=== PATIENT | female | born 1995 | race Two or more races ===

== ENCOUNTER 2018-04-24 23:43 | Emergency (ER) | payer MEDICAID ==
[~2018-04-24] VITALS: Ht 167.6 cm; Wt 96.2 kg
[2018-04-24 23:58] VITALS: BP 125/66
[2018-04-25] MEDS ORDERED: Acetaminophen 500mg (ES) tab PO ONE
[2018-04-25] MEDS ORDERED: ROBAXIN-750750 MG PO (01:08)
[2018-04-25] MEDS ORDERED: TYLENOL EXTRA500 MG ORAL (01:08)
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
[2018-04-25 01:22] VITALS: BP 122/67
--- NOTE | 2018-04-25 10:30 | Diagnostic Imaging Report ---
Indication: Knee Pain 3 views of the left knee were obtained. Findings: No acute fracture, malalignment, or joint effusion are identified. Joint space is relatively well-maintained. Impression: Negative for acute injury
== END 2018-04-25 01:26 | disposition home or self-care (01) ==
LOC: EDBD 23:43 → EMR 23:59
DX: S80.02XA Contusion of left knee, initial encounter (principal); V43.52XA Car driver injured in collision with other type car in traffic accident, initial encounter; Y92.414 Local residential or business street as the place of occurrence of the external cause; E03.9 Hypothyroidism, unspecified
CPT/HCPCS: 99283

== ENCOUNTER 2018-07-21 18:36 | Emergency (ER) | payer MEDICAID ==
[~2018-07-21] VITALS: Ht 167.6 cm; Wt 113.4 kg
[~2018-07-21 18:36] MED LIST: ROBAXIN-750750 MG PO; TYLENOL EXTRA500 MG ORAL
[2018-07-21 18:42] VITALS: BP 144/72
--- NOTE | 2018-07-21 18:43 | NUR ---
ED Nurse Note: A/Ox4. 6-7 weeks of pregant woman ambulated in to ER due to lower abdominal pain 01/24 with burning urination for 2 days. Pt states she has hx of miscarriage. Denies swelling nor discharge.
--- NOTE | 2018-07-21 19:12 | NUR ---
HAND-OFF: Report given to SHIREEN Burton. No s/s of distress.
[2018-07-21 19:14] LABS: APPEARANCE,URINE CLEAR; BILIRUBIN, URINE NEGATIVE (NEGATIVE); COLOR,URINE PALE YELLOW; GLUCOSE, URINE (UA) NEGATIVE (NEGATIVE); KETONES,URINE NEGATIVE (NEGATIVE); LEUKOCYTE ESTERASE ,URINE 2+ (NEGATIVE); NITRITE,URINE NEGATIVE (NEGATIVE); PH,URINE 7 (4.5-8.0); PROTEIN,URINE NEGATIVE (NEGATIVE); UROBILINOGEN,URINE NORMAL MG/DL (0.0-1.0)
--- NOTE | 2018-07-21 19:30 | NUR ---
ED Nurse Note: Patient resting comfortably post blood draw. No signs or symptoms of acute distress. Patient A&Ox4, asnd expresses no pain or discomfort at this time.
--- NOTE | 2018-07-21 19:42 | Emergency Room Report ---
History of Present Illness General Chief Complaint: Abdominal Pain Source: Patient Present Illness HPI 23-year-old female presents to the emergency department complaining of 7 out of 10 in severity sharp lower abdominal pains times one day. Patient also reports having dysuria 2 days. Pt. describes sharp cramping pain that is deep inside and also radiates to the low back, she denies tenderness. Patient states that she is currently estimated 4-6 weeks . Patient states that she had this calculated by her [employer] STICKER and she has her first ultrasound appointment scheduled for next week. Denies nausea, vomiting, fevers, chills, hematuria, vaginal discharge, vaginal bleeding. Patient is . Allergies: Coded Allergies: No Known Allergies (Unverified , 04/24/18) Patient History Past Medical History: see triage record Past Surgical History: none Pertinent Family History: none Now: Yes - 6th-7th week of preganncy : 2 Reviewed Nursing Documentation: PMH: Agreed; PSxH: Agreed Nursing Documentation-PMH Hx Cardiac Problems: No - hypothyroid Review of Systems All Other Systems: negative except mentioned in HPI Physical Exam Vital Signs Date Time Temp Pulse Resp B/P (MAP) Pulse Ox O2 Delivery O2 Flow Rate FiO2 07/21/18 18:39 98.6 86 22 144/72 99 Room Air Sp02 EP Interpretation: reviewed, normal General Appearance: no apparent distress, alert, GCS 15, non-toxic Head: normocephalic, atraumatic Eyes: bilateral eye normal inspection, bilateral eye PERRL ENT: hearing grossly normal, normal voice Neck: full range of motion Respiratory: lungs clear, normal breath sounds, speaking full sentences Cardiovascular #1: regular rate, rhythm Gastrointestinal: normal bowel sounds, non tender, soft Rectal: deferred Genitourinary: normal inspection Musculoskeletal: back normal, gait/station normal, normal range of motion, non- tender Neurologic: alert, oriented x3, responsive, motor strength/tone normal, sensory intact, speech normal, grossly normal Psychiatric: judgement/insight normal Skin: normal color, no rash, warm/dry, well hydrated Lymphatic: no adenopathy Medical Decision Making PA Attestation Dr. redd is my supervising Physician whom patient management has been discussed with. Diagnostic Impression: Primary Impression: Abdominal pain during in first trimester Additional Impression: Threatened miscarriage in early ER Course 23-year-old female presents to the emergency department complaining of 7 out of 10 in severity sharp lower abdominal pains times one day. Patient also reports having dysuria 2 days. Pt. describes sharp cramping pain that is deep inside and also radiates to the low back, she denies tenderness. Patient states that she is currently estimated 4-6 weeks . Patient states that she had this calculated by her [employer] STICKER and she has her first ultrasound appointment scheduled for next week. Denies nausea, vomiting, fevers, chills, hematuria, vaginal discharge, vaginal bleeding. Patient is . Ddx considered but are not limited to: Fibroid, ectopic , Fibroid, Spontaneous , UTI Vital signs: are WNL, pt. is afebrile H&PE are most consistent with: abdominal pain during early ORDERS: - CBC: WNL/ unremarkable -UA: unremarkable no evidence to suggest infection. -Serum Hcg Quant: 67,611 -Pelvic US complete- Single intrauterine estimated at 7 weeks gestation. HR 162 ED INTERVENTIONS: None at this time. DISCHARGE: At this time pt. is stable for d/c to home. Will provide printed patient care instructions, and any necessary prescriptions. Care plan and follow up instructions have been discussed with the patient prior to discharge. Labs Test 07/21/18 18:55 07/21/18 19:30 Urine Color Pale yellow Urine Appearance Clear Urine pH 7 (4.5-8.0) Urine Specific [place] 1.005 (1.005-1.035) Urine Protein Negative (NEGATIVE) Urine Glucose (UA) Negative (NEGATIVE) Urine Ketones Negative (NEGATIVE) Urine Blood Negative (NEGATIVE) Urine Nitrite Negative (NEGATIVE) Urine Bilirubin Negative (NEGATIVE) Urine Urobilinogen Normal MG/DL (0.0-1.0) Urine Leukocyte Esterase 2+ (NEGATIVE) Urine RBC 0-2 /HPF (0 - 2) Urine WBC 2-4 /HPF (0 - 2) Urine Squamous Epithelial Cells Occasional /LPF Urine Bacteria Occasional /HPF (NONE) White Blood Count 12.3 K/UL (4.8-10.8) Red Blood Count 4.76 M/UL (4.20-5.40) Hemoglobin 12.3 G/DL (12.0-16.0) Hematocrit 37.9 % (37.0-47.0) Mean Corpuscular Volume 79 FL (80-99) Mean Corpuscular Hemoglobin 25.9 PG (27.0-31.0) Mean Corpuscular Hemoglobin Concent 32.6 G/DL (32.0-36.0) Red Cell Distribution Width 14.3 % (11.6-14.8) Platelet Count 298 K/UL (150-450) Mean Platelet Volume 5.1 FL (6.5-10.1) Neutrophils (%) (Auto) 71.1 % (45.0-75.0) Lymphocytes (%) (Auto) 19.9 % (20.0-45.0) Monocytes (%) (Auto) 7.2 % (1.0-10.0) Eosinophils (%) (Auto) 1.1 % (0.0-3.0) Basophils (%) (Auto) 0.8 % (0.0-2.0) Human Chorionic Gonadotropin, Quant 81949 mIU/mL (1-6) CT/MRI/US Diagnostic Results CT/MRI/US Diagnostic Results : Imaging Test Ordered: OB US 1st trimester Impression IUP approx 7 wks gestation with HR of 162. 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 Last Vital Signs Date Time Temp Pulse Resp B/P (MAP) Pulse Ox O2 Delivery O2 Flow Rate FiO2 07/21/18 18:42 86 22 Room Air 07/21/18 18:42 98.6 144/72 99 Disposition: HOME, SELF-CARE Condition: Stable Referrals: [facility],REFERRING (PCP) Patient Instructions: Abdominal Pain During Additional Instructions: Take medications as directed. Follow up with a OBGYN within 3 days, even if your symptoms have resolved. Return sooner to ED if new symptoms occur, or current symptoms become worse. - Please note that this Emergency Department Report was dictated using [employer] technology software, occasionally this can lead to erroneous entry secondary to interpretation by the dictation equipment. Faye Nelson Jul 21, 2018 19:42
[2018-07-21 19:49] LABS: BASOPHILS % (AUTO) 0.8 % (0.0-2.0); EOSINOPHILS % (AUTO) 1.1 % (0.0-3.0); HEMATOCRIT 37.9 % (37.0-47.0); HEMOGLOBIN 12.3 G/DL (12.0-16.0); LYMPHOCYTES % (AUTO) 19.9 % (20.0-45.0); MEAN CORPUSCULAR VOLUME 79 FL (80-99); MONOCYTES % (AUTO) 7.2 % (1.0-10.0); NEUTROPHILS % (AUTO) 71.1 % (45.0-75.0); PLATELET COUNT 298 K/UL (150-450); RED BLOOD COUNT 4.76 M/UL (4.20-5.40); RED CELL DISTRIBUTION WIDTH 14.3 % (11.6-14.8); WHITE BLOOD COUNT 12.3 K/UL (4.8-10.8)
--- NOTE | 2018-07-21 20:40 | NUR ---
ED Nurse Note: Patient went down for imaging.
[2018-07-21] MEDS ORDERED: PHENAZOPYRIDIN200 MG ORAL (21:48)
[2018-07-21] MEDS ORDERED: TYLENOL EXTRA500 MG ORAL (21:48)
[2018-07-21] MEDS ORDERED: NITROFURANTOIN100 M2 ORAL (21:50)
--- NOTE | 2018-07-21 22:05 | NUR ---
ED Nurse Note: Patient discharged in stable condition by Dr. Steve. Patient has no s/s of acute distress, pain or discomfort. PAtient ID band removed, and patient verbalized understanding of discharge instructions.
[2018-07-21 22:07] VITALS: BP 144/72
--- NOTE | 2018-07-22 15:52 | Diagnostic Imaging Report ---
EXAM: US First Trimester, Transabdominal US , Transvaginal CLINICAL HISTORY: PAIN TECHNIQUE: Real-time transabdominal and transvaginal obstetrical ultrasound of the maternal pelvis and a first trimester with image documentation. Transvaginal imaging was used for better evaluation of the fetus and adnexa. COMPARISON: No relevant prior studies available. FINDINGS: Gestation: IUP measuring 7 weeks 0 days with heart rate of 160 beats/minute. Placenta/amniotic fluid: Cannot be adequately evaluated due to the early gestational age. Uterus/cervix: Uterus measures 12.2 x 4.9 x 7.6 cm. Ovaries: The right ovary measures 3 x 3.1 x 2.1 cm. No complex lesion or torsion. Left ovary measures 3 x 3.4 x 1.9 cm. No complex lesion or torsion. Other findings: Probable trace implantation bleed. IMPRESSION: 1. IUP measuring 7 weeks 0 days with heart rate of 160 beats/minute. 2. Probable trace implantation bleed.
== END 2018-07-21 22:08 | disposition home or self-care (01) ==
LOC: EMR 19:03
DX: O20.0 Threatened abortion (principal); Z3A.01 Less than 8 weeks gestation of pregnancy
CPT/HCPCS: 36415; 76801; 76830; 81003; 84702; 85025; 99284